=== PATIENT | male | born 1990 ===

== ENCOUNTER 2025-08-10 14:21 | Outpatient (CLI) | payer OTHER, SELFPAY ==
--- NOTE | 2025-08-10 14:29 | CTR_ITS ---
PROCEDURE INFORMATION: Exam: CT Neck With Contrast Exam date and time: 08/10/2025 2:44 PM Age: 35 years old Clinical indication: Enlarged lymph nodes; Localized; Cervical lymphadenopathy. Bb placed on palpable mass TECHNIQUE: Imaging protocol: Computed tomography of the neck with contrast. Radiation optimization: All CT scans at this facility use at least one of these dose optimization techniques: automated exposure control; mA and/or kV adjustment per patient size (includes targeted exams where dose is matched to clinical indication); or iterative reconstruction. Contrast material: OMNI 350; Contrast volume: 100 ml; Contrast route: INTRAVENOUS (IV); COMPARISON: [place] thyroid [id number] 07/17/2025 8:12 AM RADIATION DOSE METRICS: Total DLP (mGy-cm): 135.68 FINDINGS: Salivary glands: Normal. Glands are normal in size. Pharynx: Unremarkable. No significant tonsillar enlargement. Larynx: Unremarkable. Epiglottis is normal. Thyroid: Normal. No enlarged or calcified nodules. Trachea: Visualized trachea is unremarkable. Lungs: Unremarkable as visualized. Lymph nodes: Unremarkable. No lymphadenopathy. Bones/joints: Unremarkable. No acute fracture. Soft tissues: Unremarkable. No significant soft tissue swelling. CT/CT neck w con* [id number] IMPRESSION: No acute findings.
[2025-08-10] MEDS: iohexol 350 mg/mL 500 mL Btl (per mL) IV (14:48)
== END 2025-08-10 14:22 | disposition home or self-care (01) ==
LOC: RAD 14:24
PROVIDERS: PCP Family Medicine; Visit Provider Family Medicine
DX: R59.1 Generalized enlarged lymph nodes (principal)
CPT/HCPCS: 70491